=== PATIENT | female | born 1980 | race Caucasian/White ===

== ENCOUNTER 2016-11-02 00:02 | Emergency (ER) | payer BC | END 2016-11-02 03:45 | disposition home or self-care (01) | LOC: ER 00:02 | DX: M54.12 Radiculopathy, cervical region (principal); F17.210 Nicotine dependence, cigarettes, uncomplicated; Z90.49 Acquired absence of other specified parts of digestive tract | CPT/HCPCS: 96372; J1100; J2550 ==